=== PATIENT | male | born 1980 | race Caucasian/White ===

== ENCOUNTER 2019-05-24 18:35 | Emergency (ER) | payer OTHER ==
[~2019-05-24] VITALS: Ht 180.3 cm; Wt 97.5 kg
[~2019-05-24 18:35] MED LIST: PAROXETINE HCL30 MG PO
[2019-05-24] MEDS ORDERED: BUPROPION HCL150 MG PO (18:50)
[2019-05-24] MEDS ORDERED: ACETAMINOPHEN-118 M1 PO (18:50)
[2019-05-24] MEDS ORDERED: AZITHROMYC200 MG/5 M PO (18:50)
[2019-05-24] MEDS ORDERED: DEXAMETHASONE4 MG PO (18:51)
[2019-05-24] MEDS ORDERED: LIDOCAINE40 MG/1 ML MM (18:51)
== END 2019-05-24 20:44 | disposition home or self-care (01) ==
LOC: ED 18:35
DX: J95.89 Other postprocedural complications and disorders of respiratory system, not elsewhere classified (principal); F17.200 Nicotine dependence, unspecified, uncomplicated; Z88.5 Allergy status to narcotic agent; Z79.899 Other long term (current) drug therapy
CPT/HCPCS: 71045; 85025; 96374; 96375; 96376; 99283-25; J1170; J2405